=== PATIENT | female | born 1955 | race Two or more races ===

== ENCOUNTER 2023-04-07 19:17 | Emergency (ER) | payer OTHER ==
[~2023-04-07] VITALS: Ht 154.9 cm; Wt 95.3 kg
[2023-04-07] MEDS ORDERED: AVAPRO75 MG PO (19:39)
[2023-04-07] MEDS ORDERED: NITROFURANTOIN100 MG PO (21:42)
== END 2023-04-07 21:59 | disposition home or self-care (01) ==
LOC: ER 19:17
PROVIDERS: General Practice
DX: R53.81 Other malaise (principal); R53.1 Weakness; N39.0 Urinary tract infection, site not specified; Z20.822 Contact with and (suspected) exposure to COVID-19; I10 Essential (primary) hypertension

== ENCOUNTER 2024-02-25 12:01 | Emergency (ER) | payer OTHER ==
[~2024-02-25] VITALS: Ht 154.9 cm; Wt 88.5 kg
[~2024-02-25 12:01] MED LIST: AVAPRO75 MG PO; NITROFURANTOIN100 MG PO
[2024-02-25 14:47] LABS: HEMATOCRIT 37.9 % (36.0-45.00); MEAN CELL VOLUME 90.6 fL (80.00-100.00); MEAN CORPUSCULAR HEMOGLOBIN 31.1 pg (27.00-32.0); MEAN CORPUSCULAR HGB CONC 34.3 g/dl (32.0-36.0); PLATELET COUNT 250 K/uL (150-450); RED BLOOD COUNT 4.19 M/uL (4.00-6.00); RED CELL DISTRIBUTION WIDTH 12.1 % (11.5-14.5)
[2024-02-25 15:16] LABS: BILIRUBIN TOTAL 0.62 mg/dL (0.3-1.2); CALCIUM 9.5 mg/dL (8.5-10.1); CREATININE SERUM 0.78 mg/dL (0.55-1.02); GFR 73.66; GLOBULINA 4.1 G/DL (2.4-3.5); POTASSIUM 3.34 mEq/L (3.5-5.1); TOTAL PROTEIN 8.1 gm/dL (6.4-8.2)
== END 2024-02-25 16:34 | disposition home or self-care (01) ==
LOC: ER 12:02
PROVIDERS: Emergency Medicine
DX: R07.89 Other chest pain (principal); I10 Essential (primary) hypertension